=== PATIENT | female | born 1980 ===

== ENCOUNTER 2018-07-20 13:52 | Emergency (ER) | payer SELFPAY ==
[2018-07-20 14:00] VITALS: BP 134/77; PULSE 82; RESP 16; TEMP 98.9; O2SAT 100
--- NOTE | 2018-07-20 14:39 | ED PDOC ---
HPI: Headache Time Seen by Provider: 07/20/18 14:02 Chief Complaint (Nursing): Headache Chief Complaint (Provider): Right sided headache x 1 month History Per: Patient History/Exam Limitations: no limitations Onset/Duration Of Symptoms: Days Current Symptoms Are (Timing): Still Present Severity: Moderate Quality: Dull, Other (Throbbing ) Preceeding Symptoms: None Associated Symptoms: denies: Photophobia, Blurred Vision, Nausea, Vomiting, Extremity Weakness Additional Complaint(s): 37 yo female with history of migraine presents for evaluation of right sided headache for 1 month. Pt states that she was seen by the clinic last week and given medications for migraine but they are not helping. Pt states they feels the same as previous migraines which she has gotten for years. Normal MRI 2015. Pt states she was told by [facility] to come tot he clinic for evaluation if pain continued. Pt denies new symptoms today. Past Medical History Reviewed: Historical Data, Nursing Documentation, Vital Signs Vital Signs: Last Vital Signs Temp 98.9 F 07/20/18 13:57 Pulse 82 07/20/18 13:57 Resp 16 07/20/18 13:57 BP 134/77 07/20/18 13:57 Pulse Ox 100 07/20/18 13:57 - Medical History PMH: Migraine - Surgical History Surgical History: No Surg Hx - Family History Family History: States: No Known Family Hx - Living Arrangements Living Arrangements: With Family - Social History Current smoker - smoking cessation education provided: No - Allergies Allergies/Adverse Reactions: Allergies Allergy/AdvReac Type Severity Reaction Status Date / Time No Known Allergies Allergy Verified 07/20/18 13:57 Review of Systems ROS Statement: Except As Marked, All Systems Reviewed And Found Negative Constitutional: Negative for: Fever, Chills ENT: Negative for: Throat Pain, Throat Swelling Neurological: Positive for: Headache. Negative for: Altered Mental Status, Dizziness Physical Exam - Reviewed Nursing Documentation Reviewed: Yes Vital Signs Reviewed: Yes - Physical Exam Appears: Positive for: Well, Non-toxic, No Acute Distress Head Exam: Positive for: ATRAUMATIC, NORMAL INSPECTION, NORMOCEPHALIC Skin: Positive for: Normal Color, Warm, DRY Eye Exam: Positive for: Normal appearance, EOMI, PERRL ENT: Positive for: Normal ENT Inspection Neck: Positive for: Normal Cardiovascular/Chest: Negative for: Bradycardia, Tachycardia Respiratory: Negative for: Accessory Muscle Use, Respiratory Distress Back: Positive for: Normal Inspection Extremity: Positive for: Normal ROM Neurologic/Psych: Positive for: Alert, Oriented - ECG O2 Sat by Pulse Oximetry: 100 Pulse Ox Interpretation: Normal Medical Decision Making Medical Decision Making: Head CT normal. Pt reports improvement after imitrex Disposition - Clinical Impression Clinical Impression: Migraine - Patient ED Disposition Is Patient to be Admitted: No Counseled Patient/Family Regarding: Diagnosis, Need For Followup - Disposition Referrals: Ran Carreno MD [Staff Provider] - Disposition: Routine/Home Disposition Time: 15:27 Condition: GOOD Instructions: Migraine Headache (DC) Forms: [facility] (Tajik) Print Language: ICELANDIC
--- NOTE | 2018-07-20 14:57 | CT ---
Date of service: 07/20/2018 PROCEDURE: CT HEAD WITHOUT CONTRAST. HISTORY: headache COMPARISON: Brain MRI 06/10/2016. TECHNIQUE: Axial computed tomography images were obtained through the head/brain without intravenous contrast. Radiation dose: Total exam DLP = 823.78 mGy-cm. This CT exam was performed using one or more of the following dose reduction techniques: Automated exposure control, adjustment of the mA and/or kV according to patient size, and/or use of iterative reconstruction technique. FINDINGS: HEMORRHAGE: No intracranial hemorrhage. BRAIN: Normal fontaine-white matter differentiation and density are appreciated throughout the cerebrum and cerebellum with the brainstem appearing unremarkable as well. There is no mass effect. There is no suspicious extra-axial fluid collection and the midline brain anatomy appears diffusely unremarkable. VENTRICLES: Unremarkable. No hydrocephalus. CALVARIUM: Unremarkable. PARANASAL SINUSES: Unremarkable as visualized. No significant inflammatory changes. MASTOID AIR CELLS: Unremarkable as visualized. No inflammatory changes. OTHER FINDINGS: None. IMPRESSION: Unremarkable noncontrast head CT.
== END 2018-07-20 15:37 | disposition home or self-care (01) ==
LOC: H.ER 13:52
DX: G43.909 Migraine, unspecified, not intractable, without status migrainosus (principal)
CPT/HCPCS: 70450; 96372; 99283; J3030

== ENCOUNTER 2019-02-18 22:16 | Emergency (ER) | payer SELFPAY ==
[2019-02-18 22:25] VITALS: BP 117/72; TEMP 98.8
--- NOTE | 2019-02-19 00:51 | ED PDOC ---
HPI: Influenza Time Seen by Provider: 02/18/19 23:45 Chief Complaint: Cough, Cold, Congestion Chief Complaint (Provider): Flu-Like symptoms History Per: Patient Exam Limitations: no limitations Onset/Duration Of Symptoms: Days (4) Additional complaint(s):: 38 y/o female with no significant PMHx presents with 4 days of flu-like symptoms. Patient states she opted against having the flu vaccine. She is complaining of body aches, headache, dry cough. Patient reports she has been taking Advil with partial relief. She denies any vomiting or diarrhea. Past Medical History Reviewed: Historical Data, Nursing Documentation, Vital Signs Vital Signs: Last Vital Signs Temp 98.8 F 02/18/19 22:22 Pulse 99 H 02/18/19 22:22 Resp 18 02/18/19 22:22 BP 117/72 02/18/19 22:22 Pulse Ox 98 02/18/19 22:22 - Medical History PMH: Migraine - Surgical History Surgical History: No Surg Hx - Family History Family History: States: Unknown Family Hx - Social History Current smoker - smoking cessation education provided: No Alcohol: None Drugs: Denies - Home Medications Home Medications: Ambulatory Orders Medication Instructions Recorded Benzonatate [Tessalon Perle] 100 mg PO TID PRN #15 capsule 02/19/19 levoFLOXacin [Levaquin] 500 mg PO DAILY #10 tab 02/19/19 - Allergies Allergies/Adverse Reactions: Allergies Allergy/AdvReac Type Severity Reaction Status Date / Time No Known Allergies Allergy Verified 07/20/18 13:57 Review of Systems ROS Statement: Except As Marked, All Systems Reviewed And Found Negative Constitutional: Positive for: Weakness, Malaise Respiratory: Positive for: Cough. Negative for: Sputum Neurological: Positive for: Headache Physical Exam - Reviewed Nursing Documentation Reviewed: Yes Vital Signs Reviewed: Yes - Physical Exam Appears: Positive for: Well, Non-toxic, No Acute Distress Head Exam: Positive for: ATRAUMATIC, NORMAL INSPECTION, NORMOCEPHALIC Skin: Positive for: Normal Color, Warm, DRY Eye Exam: Positive for: EOMI, Normal appearance, PERRL ENT: Positive for: Normal ENT Inspection Neck: Positive for: Normal, Painless ROM Cardiovascular/Chest: Positive for: Regular Rate, Rhythm. Negative for: Murmur Respiratory: Positive for: Normal Breath Sounds. Negative for: Respiratory Distress Gastrointestinal/Abdominal: Positive for: Normal Exam, Soft. Negative for: Tenderness Back: Positive for: Normal Inspection Extremity: Positive for: Normal ROM. Negative for: Pedal Edema, Deformity Neurological/Psych: Positive for: Awake, Alert, Normal Tone. Negative for: Motor/Sensory Deficits Medical Decision Making Medical Decision Making: Time: 23:58 Impression: 38 y/o with flu like symptoms Initial Plan: * CXR * Urine 01:31 X-ray shows early infiltrate at the right base. Patient is not hypoxic and has no underlying co-morbidities. She was given her first dose of Levaquin here and will follow up at the clinic where she is a patient. Diagnosis is influenza and pneumonia. Patient is not a candidate for Tamiflu given duration of symptoms which was explained to patient Scribe Attestation: Documented by Reyes Sesay, acting as a scribe Elliot Rosenberg MD Provider Scribe Attestation: All medical record entries made by the Scribe were at my direction and personally dictated by me. I have reviewed the chart and agree that the record accurately reflects my personal performance of the history, physical exam, medical decision making, and the department course for this patient. I have also personally directed, reviewed, and agree with the discharge instructions and disposition - ECG O2 Sat by Pulse Oximetry: 98 Disposition - Clinical Impression Clinical Impression: Influenza, Pneumonia - Disposition Referrals: Isabelle Barbosa MD [Primary Care Provider] - Disposition: Routine/Home Disposition Time: :31 Condition: STABLE Additional Instructions: ZACH JEONG, thank you for letting us take care of you today. Your provider was Ravindra Rosenberg MD and you were treated for CHEST PAIN. The emergency medical care you received today was directed at your acute symptoms. If you were prescribed any medication, please fill it and take as directed. It may take several days for your symptoms to resolve. Return to the Emergency Department if your symptoms worsen, do not improve, or if you have any other problems. Please contact your doctor or call one of the physicians/clinics you have been referred to that are listed on the Patient Visit Information form that is included in your discharge packet. Bring any paperwork you were given at discharge with you along with any medications you are taking to your follow up visit. Our treatment cannot replace ongoing medical care by a primary care provider outside of the emergency department. Thank you for allowing the [facility] team to be part of your care today. If you had an X-Ray or CT scan: A Radiologist will review the ED reading if any change in treatment is needed we will contact you. If you had a blood, urine, or wound culture: It will take several days for the results, if any change in treatment is needed we will contact you. If you had an STI test: It will take 48 hours for the results. Please call after 1 week if you have not heard back. Prescriptions: Benzonatate [Tessalon Perle] 100 mg PO TID PRN #15 capsule PRN Reason: Cough levoFLOXacin [Levaquin] 500 mg PO DAILY #10 tab Instructions: Flu, Adult (DC), Pneumonia, Adult (DC) Forms: [facility] (Bahraini) Print Language: GEORGIAN
[2019-02-19] MEDS ORDERED: levoFLOXacin 500 MG TAB PO STA (01:26)
[2019-02-19 03:02] VITALS: PULSE 89; RESP 17; O2SAT 99
--- NOTE | 2019-02-19 11:26 | RAD ---
Date of service: 02/19/2019 HISTORY: cough COMPARISON: No prior. TECHNIQUE: Chest PA and lateral views FINDINGS: LUNGS: No active pulmonary disease. PLEURA: No significant pleural effusion identified. No pneumothorax apparent. CARDIOVASCULAR: No aortic atherosclerotic calcification present. Normal cardiac size. No pulmonary vascular congestion. OSSEOUS STRUCTURES: No significant abnormalities. VISUALIZED UPPER ABDOMEN: Normal. OTHER FINDINGS: None. IMPRESSION: No active disease.
== END 2019-02-19 02:19 | disposition home or self-care (01) ==
LOC: H.ER 22:16
DX: J11.1 Influenza due to unidentified influenza virus with other respiratory manifestations (principal)